=== PATIENT | female | born 1970 | race Caucasian/White ===

== ENCOUNTER 2019-07-20 14:04 | Outpatient (CLI) | payer BC, SELFPAY ==
--- NOTE | ~2019-07-20 | CT_ITS ---
EXAMINATION: CT chest wo con DATE: 07/20/2019 14:44 INDICATION: Follow-up of lung nodule TECHNIQUE: Computed tomography (CT) of the chest was performed without intravenous contrast. Automate d exposure control and iterative reconstruction technique were employed. Exam dose: 76.60 mGy-cm tot al exam DLP. COMPARISON: 05/20/2014 PA and lateral chest 09/09/2013 CT pulmonary scan: 8.5 mm right lower lobe nodule was identified FINDINGS: Previously reported 8.5 mm right lower lobe nodule has resolved since 09/09/2013, with no re sidual. There is minimal atelectasis in the lower lung zones. No pulmonary infiltrate or consolidation or pul monary mass lesion is evident. No thoracic aortic aneurysm. No hilar or mediastinal mass lesion or lymphadenopathy is evident. Fiona l heart size. No pericardial or pleural effusion. Normal adrenal glands. Included upper abdominal structures are unremarkable. Stable mild anterior wedging of T4, T5 and T6. IMPRESSION: Resolution of 8.5 mm right lower lobe nodule since 05/20/2014 Reviewed, dictated and finalized at Location A. Reviewed, dictated and finalized at location B. MASON TENDER
== END 2019-07-20 14:05 | disposition home or self-care (01) ==
LOC: ANHIMG 14:06
PROVIDERS: PCP Family Medicine; Visit Provider Family Medicine
DX: R91.8 Other nonspecific abnormal finding of lung field (principal)
CPT/HCPCS: 71250

== ENCOUNTER 2020-07-16 06:59 | Outpatient (NON) | payer BC, SELFPAY ==
[2020-07-16 22:28] LABS: SARS-CoV-2 RNA PCR Positive
== END 2020-07-16 07:00 ==
PROVIDERS: PCP Family Medicine; Visit Provider Physician Assistant
DX: Z20.822 Contact with and (suspected) exposure to COVID-19 (principal); R68.89 Other general symptoms and signs
CPT/HCPCS: C9803; U0003; U0005

== ENCOUNTER → 2020-11-15 17:42 | Outpatient (CLI) | payer BC, SELFPAY ==
--- NOTE | ~2020-11-15 | DEXA_ITS ---
Bone Density Report Name: Carmenza Jacome Age: 49 Sex: Female Ethnicity: White Date of : 1970 Indication: postmenopausal; screening for osteoporosis; parental hip fracture; height loss; prior fracture; Referring Provider: SHI GUY Study: Bone densitometry was performed. Exam Date: November 15, 2020 Accession number: [id number] Bone Density: Region BMD T-score Z-score Classification AP Spine (L1-L4) 0.915 -1.2 -0.4 Osteopenia Femoral Neck (Left) 0.648 -1.8 -1.0 Osteopenia Total Hip (Left) 0.764 -1.5 -1.0 Osteopenia Femoral Neck (Right) 0.677 -1.5 -0.8 Osteopenia Total Hip (Right) 0.785 -1.3 -0.8 Osteopenia Total Hip Mean 0.775 -1.4 -0.9 Osteopenia World Health Organization criteria for BMD impression classify patients as: Normal (T-score at or above -1.0), Osteopenia (T-score between -1.0 and -2.5), or Osteoporosis (T-score at or below -2.5). 10-year Fracture Risk: FRAX not reported because: Prior hip or vertebral fracture Clinical Information Provided by Patient: Have had a previous hip or vertebral fracture Has had a low trauma fracture Parent has had a hip fracture Has used the following medications: Vitamin D Patient maximum height was 66 Menopause Age: 45 No regular weight bearing exercise Does not regularly consume dairy products Drinks caffeinated beverages Onset of menses at age 9 Number of children 2 Impression: The patient has low bone mass, based on the Left Femoral Neck T-score. The patient has risk factors, including: parental hip fracture, previous fracture. Discussion: INCREASED RISK OF FRACTURE DUE TO HISTORY OF FRACTURE. The patient's previous fracture puts the patient at high risk of a future fracture. In untreated patients, the risk of osteoporotic fracture increases approximately two-fold for each 1.0 SD decrease in T-score. Low bone density is not the only risk factor for fracture; also consider factors such as patient's age, frailty or poor health, risk of falling, risk of injury, previous osteoporotic fracture, family history of osteoporosis, cigarette smoking, low body weight, etc. Not everyone with a low trauma fracture has osteoporosis; osteomalacia and other metabolic bone disorders should also be considered. Patients who have osteoporosis should be evaluated for specific diseases and conditions (secondary causes) that may cause or contribute to bone loss and fracture risk. National Osteoporosis Foundation (NOF) recommends pharmacologic intervention for patients with a prior hip or vertebral fracture regardless of BMD T-score. The patient should follow a healthful lifestyle (good nutrition with adequate calcium and vitamin D, and appropriate weight-bearing exercise). Follow-Up: Consider a repeat BMD and Vertebral Fracture Assessment (VFA) exam in 2 years or sooner if medica
--- NOTE | ~2020-11-15 | MM_ITS ---
EXAMINATION: MM screening [facility] w karen HISTORY: Screening TECHNIQUE: Craniocaudal and mediolateral oblique 3-D tomosynthesis images were obtained and synthetic 2-D images were generated. CAD analysis was submitted and interpreted. COMPARISON: Comparison to multiple prior studies sequentially, with oldest reviewed study dated 12/2015. BREAST PARENCHYMAL COMPOSITION: There are scattered areas of fibroglandular density. FINDINGS: There is developing asymmetry in the upper outer quadrant of the right breast. The left rosa isela ast is stable without evidence for malignancy. IMPRESSION: 1. Developing right breast asymmetry, upper outer quadrant. 2. Additional mammographic views and possible breast ultrasound are recommended. BI-RADS Category 0: Incomplete: Needs additional imaging evaluation. Reviewed, dictated and finalized at location A. IMPRESSION: 1. Developing right breast asymmetry, upper outer quadrant. 2. Additional mammographic views and possible breast ultrasound are recommended . BI-RADS Category 0: Incomplete: Needs additional imaging evaluation.
== END ==
PROVIDERS: PCP Family Medicine; Visit Provider Family Medicine
DX: Z12.31 Encounter for screening mammogram for malignant neoplasm of breast (principal); Z78.0 Asymptomatic menopausal state; R92.8 Other abnormal and inconclusive findings on diagnostic imaging of breast; M85.88 Other specified disorders of bone density and structure, other site; M85.852 Other specified disorders of bone density and structure, left thigh; M85.851 Other specified disorders of bone density and structure, right thigh
CPT/HCPCS: 77063; 77067; 77080

== ENCOUNTER → 2020-12-13 08:42 | Outpatient (CLI) | payer BC, SELFPAY ==
--- NOTE | ~2020-12-13 | MMUS_ITS ---
EXAMINATION: MM diagnostic mammo unilat RT, US breast RT limited HISTORY: Right breast asymmetry follow-up TECHNIQUE: Additional 3-D tomosynthesis images of the right breast were performed and synthetic 2-D i mages were generated. CAD analysis was submitted and interpreted. High resolution Limited right breas t ultrasound was performed. COMPARISON: Comparison to multiple prior studies sequentially, with oldest reviewed study dated 02/2018. BREAST PARENCHYMAL COMPOSITION: Breast composed of scattered areas of fibroglandular density FINDINGS: MAMMOGRAPHIC FINDINGS: Right breast asymmetry is not apparent with spot compression or mediolateral views, likely superimpos ed fibroglandular tissue. ULTRASOUND: Limited right breast ultrasound: At 12:00, 1 cm from the nipple there is a 3 mm cyst. No other masses are identified in the right breast. IMPRESSION: 1. No evidence for malignancy in the right breast. 2. Routine yearly screening mammogram and regular clinical breast examination are recommended. BI-RADS Category 2: Benign finding(s). Reviewed, dictated and finalized at location A. IMPRESSION: 1. No evidence for malignancy in the right breast. 2. Routine yearly screening mammogram and regular clinical breast examination a re recommended. BI-RADS Category 2: Benign finding(s).
== END ==
PROVIDERS: PCP Family Medicine; Visit Provider Physician Assistant
DX: R92.8 Other abnormal and inconclusive findings on diagnostic imaging of breast (principal)
CPT/HCPCS: 76642; 77065

== ENCOUNTER → 2022-03-01 14:25 | Outpatient (CLI) | payer OTHER, SELFPAY ==
--- NOTE | ~2022-03-01 | MR_ITS ---
EXAMINATION: MR elbow RT wo con DATE: 03/01/2022 15:05 INDICATION: Right elbow pain TECHNIQUE: Magnetic resonance imaging (MRI) of the right elbow was performed without intravenous cont rast. Sequences included coronal, axial, and sagittal PD-weighted FS FSE and coronal, axial, and sagi ttal PD-weighted FSE. COMPARISON: None FINDINGS: Osseous/other: Normal alignment. Normal marrow signal with no marrow edema, fracture, osteochondral lesion or patho logic marrow replacing process. Mild osteoarthritis in all 3 compartments of the right elbow with par tial thickness cartilage loss most prominent at the central aspect of the radial head. Mild osteoarth ritis at the ulnotrochlear and proximal radioulnar articulations. Tendons: Triceps, biceps brachii and brachialis tendons are normal. Common flexor tendon wad is normal. Mild tendinopathy without discrete tear at the proximal common extensor tendon wad. Ligaments: The medial and lateral collateral ligament complexes are normal. Cubital tunnel: Cubital tunnel is unremarkable with normal signal and caliber of the ulnar nerve. Fluid: Physiologic amount of fluid the elbow joint. IMPRESSION: 1. Mild lateral epicondylitis with mild tendinopathy without tear of the common extensor tendon wad. 2. 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 Reviewed, dictated and finalized at location A.
== END ==
PROVIDERS: PCP Family Medicine; Visit Provider Nurse Practitioner Family
DX: M19.021 Primary osteoarthritis, right elbow (principal); M77.11 Lateral epicondylitis, right elbow
CPT/HCPCS: 73221

== ENCOUNTER → 2022-05-16 12:28 | Outpatient (CLI) | payer OTHER, SELFPAY ==
--- NOTE | ~2022-05-16 | MM_ITS ---
EXAMINATION: MM screening [facility] BI w karen HISTORY: Screening mammogram TECHNIQUE: Craniocaudal and mediolateral oblique 3-D tomosynthesis images were obtained and synthetic 2-D images were generated. CAD analysis was submitted and interpreted. COMPARISON: 12/13/2020, 11/15/2020, 07/10/2019, 07/26/2017 BREAST PARENCHYMAL COMPOSITION: The breasts are heterogeneously dense, which may obscure small masses . FINDINGS: No suspicious mass, calcification, or architectural distortion are identified in either rosa isela ast to suggest malignancy. There has been no suspicious interval change. IMPRESSION: 1. No mammographic evidence of malignancy. 2. Recommend routine screening mammography in one year. BI-RADS Category 1: Negative Reviewed, dictated and finalized at location A. RANCE CLAIM AUDITOR
== END ==
PROVIDERS: PCP Family Medicine; Visit Provider Nurse Practitioner Gerontology
DX: Z12.31 Encounter for screening mammogram for malignant neoplasm of breast (principal)
CPT/HCPCS: 77063; 77067

== ENCOUNTER → 2022-10-30 16:55 | Outpatient (CLI) | payer OTHER, SELFPAY ==
--- NOTE | ~2022-10-30 | MR_ITS ---
EXAMINATION: MR ankle RT wo con DATE: 10/30/2022 17:53 INDICATION: Right ankle pain TECHNIQUE: Magnetic resonance imaging (MRI) of the right ankle was performed without intravenous cont rast. Sequences included sagittal, coronal, and axial proton-density weighted fast spin echo without and with fat saturation. COMPARISON: None. FINDINGS: Medial ankle ligaments: Deep and superficial deltoid ligaments as well as the spring ligament are normal. Lateral ankle ligaments: The anterior and posterior inferior tibiofibular ligaments are normal. The anterior talofibular, calc aneofibular and posterior talofibular ligaments are normal. Tendons: Achilles tendon is normal aside from tiny enthesophytes at its calcaneal insertion.. The peroneus rai parker and brevis tendons are normal. The tibialis anterior and extensor hallucis longus and extensor di gitorum longus tendons are normal. The flexor digitorum longus and flexor hallucis longus tendons are normal. There is mild increased fluid signal extending along the periphery of the otherwise normal a ppearing tibialis posterior tendon consistent with mild tenosynovitis. Plantar fascia: Plantar aponeurosis is normal. Bones/other: Bone alignment is normal. Normal bone marrow signal throughout with no reactive edema, fracture or pa thologic marrow replacing process. Joint spaces are normal. Fluid: Physiologic amount fluid in the joint spaces. IMPRESSION: 1. Normal tibialis posterior tendon with mild associated tenosynovitis. Reviewed, dictated and finalized at location A.
== END ==
PROVIDERS: PCP Family Medicine; Visit Provider Podiatrist Foot & Ankle Surgery
DX: M25.571 Pain in right ankle and joints of right foot (principal)
CPT/HCPCS: 73721

== ENCOUNTER 2023-12-20 12:40 | Outpatient (CLI) | payer OTHER, SELFPAY ==
--- NOTE | ~2023-12-20 | MM_ITS ---
EXAMINATION: MM screening [facility] BI w karen HISTORY: Screening mammogram TECHNIQUE: Craniocaudal and mediolateral oblique 3-D tomosynthesis images were obtained and synthetic 2-D images were generated. CAD analysis was submitted and interpreted. COMPARISON: 05/16/2022, 11/15/2020 BREAST PARENCHYMAL COMPOSITION:Not Dense. There are scattered areas of fibroglandular density. FINDINGS: No suspicious mass, calcification, or architectural distortion are identified in either rosa isela ast to suggest malignancy. There has been no suspicious interval change. IMPRESSION: No mammographic evidence of malignancy. Recommend routine screening mammography in one year. BI-RADS Category 1: Negative Reviewed, dictated and finalized at location .
== END 2023-12-20 12:41 ==
LOC: MICIMG 12:41
PROVIDERS: PCP Family Medicine; Visit Provider Family Medicine
DX: Z12.31 Encounter for screening mammogram for malignant neoplasm of breast (principal)
CPT/HCPCS: 77063; 77067

== ENCOUNTER 2024-01-26 18:04 | Emergency (ER) | payer OTHER, SELFPAY ==
--- NOTE | ~2024-01-26 | XR_ITS ---
EXAMINATION: XR chest 2V DATE: 01/26/2024 18:42 INDICATION: Chest pain. TECHNIQUE: Frontal and lateral views of the chest were obtained. COMPARISON: Chest 2 views 05/20/2014 FINDINGS: There is mild elevation of right hemidiaphragm. No pneumonia, pleural effusion, or pneumoth orax. The heart size is normal. IMPRESSION: 1. Mild elevation of right hemidiaphragm. Reviewed, dictated and finalized at location E.
--- NOTE | 2024-01-26 18:07 | ECG_ITS ---
Test Date: 2024-01-26 18:11:44 Measurements Intervals [place] Rate: 66 P: 58 SD: 179 QRS: 0 QRSD: 104 T: 46 QT: 386 QTc: 406 Interpretive Statements SINUS RHYTHM LEFTWARD AXIS BORDERLINE ECG No previous ECG available for comparison Electronically Signed On 01-27-2024 12:21:13 CDT by Gus Abraham M.D.
[2024-01-26 18:13] VITALS: BP 143/74; PULSE 64; TEMP 36.8; O2SAT 97
[2024-01-26 18:59] LABS: Basophils Absolute Auto 0.1 K/mm3 (0.0-0.1); Basophils Percent Auto 0.9 % (0.2-1.2); Eosinophils Absolute Auto 0.4 K/mm3 (0-0.3); Eosinophils Percent Auto 4.8 % (0-4.4); Hematocrit 39.9 % (37.0-47.0); Hemoglobin 13.2 g/dL (12.0-15.0); Immature Granulocyte Absolute 0.03 K/mm3 (0.00-0.031); Immature Granulocyte Percent A 0.4 % (0-0.5); Lymphocytes Absolute Auto 2.93 K/mm3 (0.9-3.2); Lymphocytes Percent Auto 34.4 % (18.3-44.2); Mean Corpuscular HGB Conc 33.1 g/dl (32-36); Mean Corpuscular Hemoglobin 30.4 pg (26-34); Mean Corpuscular Volume 91.9 fl (80-100); Mean Platelet Volume 9.9 fl (7.4-10.4); Monocytes Absolute Auto 0.5 K/mm3 (0.1-0.6); Monocytes Percent Auto 5.9 % (2.6-8.5); Neutrophils Absolute Auto 4.6 K/mm3 (1.3-6.7); Neutrophils Percent Auto 53.6 % (45.5-73.1); Platelet Count Result 287 k/mm3 (150-375); Red Blood Count 4.34 M/mm3 (4.2-5.4); Red Cell Distribution Width 11.9 % (11.5-14.5); White Blood Count 8.5 K/mm3 (4.5-10.0)
[2024-01-26 19:10] LABS: Alanine Aminotransferase 13 U/L (6-35); Albumin Level 4.3 g/dL (3.5-5.1); Alkaline Phosphatase 70 U/L (38-126); Anion Gap 10 mmol/L (4-12); Aspartate Amino Transferase 21 U/L (14-36); Bilirubin,Total 0.4 mg/dL (0.2-1.3); Blood Urea Nitrogen 14 mg/dL (7-17); Calcium 9.7 mg/dL (8.4-10.2); Carbon Dioxide 28 mmol/L (22-30); Chloride 100 mmol/L (98-107); Estimated CRCL calculation 82 ml/min; Estimated Glomerular Filt Rate > 60; Glucose 82 mg/dL (65-110); Lipase 120 U/L (23-300); Potassium 3.8 mmol/L (3.4-5.0); Sodium 138 mmol/L (137-145)
[2024-01-26 19:14] LABS: Prothrombin Time 13.3 Seconds (11.1-14.7)
[2024-01-26 19:16] LABS: Partial Thromboplastin Time 25.1 Seconds (22.3-36.8)
[2024-01-26 19:22] LABS: Troponin I < 0.012 ng/mL (0.000-0.034)
--- NOTE | 2024-01-26 22:00 | ECG_ITS ---
Test Date: 2024-01-26 22:04:02 Measurements Intervals [place] Rate: 54 P: 60 [place]: 173 QRS: -7 QRSD: 101 T: 32 QT: 432 QTc: 412 Interpretive Statements SINUS BRADYCARDIA LEFTWARD AXIS BORDERLINE ECG Compared to ECG 01/26/2024 18:11:44 NO SIGNIFICANT DIFFERENCE Electronically Signed On 01-27-2024 12:26:17 CDT by Gus Abraham M.D.
--- NOTE | 2024-01-26 22:08 | ED.CHESTPAIN ---
HPI - Chest Pain General Chief Complaint: Chest Pain Stated Complaint: chest pain Time Seen by Provider: 01/26/24 21:43 History of Present Illness HPI narrative: 53-year-old female with a history of hyperlipidemia and seizure disorder presents to emergency department for chest pain that started this afternoon while sitting down. Patient states the pain is located in the center of her chest and is now radiating to the left side. She describes it as a sharp sensation. She states it is intermittent in nature and she cannot identify any aggravating or alleviating factors. States sometimes it lasts a couple minutes and sometimes lasts several minutes. She reports this shortness of breath that occurs when she has the pain. She denies cough or congestion, fever, hemoptysis, recent surgeries or hospitalizations, history of VTE, history of cardiac disease, family history of cardiac disease or stroke. She does not smoke. On my evaluation the patient is not having any pain. Related Data Allergies Allergy/AdvReac Type Severity Reaction Status Date / Time Penicillins Allergy Unknown poss joint Verified 10/07/23 16:06 swelling alendronate sodium AdvReac Intermediate bone pain Verified 10/07/23 16:06 Review of Systems Review of Systems: All systems reviewed & are unremarkable except as noted in HPI and below PMFSH Past Medical History Medical History Anxiety state Close exposure to 2019 novel coronavirus PEDRO (generalized anxiety disorder) Lateral epicondylitis Major depressive disorder, recurrent episode, moderate Pulmonary nodules Right elbow pain Right upper quadrant pain Seizure disorder Family History Family History Mother Family history of alcoholism Family history of arthritis Family history of lung cancer Osteoporosis COPD (chronic obstructive pulmonary disease) Father Cancer liver or gallbladder Aortic aneurysm Pulmonary embolism Sibling No problems noted. Other Family history of lung disease Family history of malignant neoplasm Family history of mental disorder Family history of throat cancer Social History Social History Social History: Smoking status: Never smoker Second hand tobacco smoke exposure: No Alcohol intake: current Alcohol use details: occasionally Substance use: never Substance use type: does not use Lack of Transportation: No Lack of Food: Never True Current Housing: I Have Housing Concerned About Future Housing: No Difficulty Paying Gas/Electric Bills: No Difficulty Paying for Meds: No Currently Unemployed: No Education: Decline to Answer Difficulty w/ Childcare or Family Care: No Living arrangements: with family Occupation/Education: occupation Gender identity (if verbalized by the patient): Female Sexual Orientation (if Verbalized by the Patient): Straight or Heterosexual Exam Narrative: GENERAL: Well-appearing, well-nourished, and in no acute distress. HEAD: Normocephalic, atraumatic. EYES: PERRLA and EOMI. ENT: Nares clear, no rhinorrhea or epistaxis. Mucous membranes moist. NECK: Supple. CHEST: Clear to auscultation. No respiratory distress. No tenderness to chest wall HEART: Regular rate and rhythm. No murmur heard. Normal peripheral pulses. ABDOMEN: Soft, nontender, nondistended, normal active bowel sounds. EXTREMITIES: Normal range of motion. No edema. SKIN: Warm, dry, no rash. NEURO: No focal deficits. Alert and oriented x3 Course Vital Signs Vital signs: Vital Signs Temperature 98.2 F 01/26/24 18:13 Pulse Rate 64 01/26/24 18:13 Blood Pressure 143/74 H 01/26/24 18:13 Pulse Oximetry 97 01/26/24 18:13 Temperature 98.2 F 01/26/24 18:13 Pulse Rate 65 01/26/24 23:36 Respiratory Rate 13 01/26/24
[2024-01-26 22:38] LABS: Troponin I < 0.012 ng/mL (0.000-0.034)
[2024-01-26] MEDS: FAMOTIDINE 20 MG TABLET PO (22:52)
[2024-01-26] MEDS: BELLADONNA ALK/PHENOB ELIX 10 ML, MAG HYDROX/ALUMINUM HYD/SIMETH 30 ML, LIDOCAINE HCL 2... PO (22:53)
[2024-01-26 23:01] VITALS: BP 130/74; PULSE 65; RESP 16; O2SAT 100
[2024-01-26 23:36] VITALS: BP 138/79; PULSE 65; RESP 13; O2SAT 96
[2024-01-27 00:27] VITALS: BP 124/76; PULSE 72; RESP 16; O2SAT 100
== END 2024-01-27 00:28 | disposition home or self-care (01) ==
PROVIDERS: Emergency Medicine; Student in an Organized Health Care Education/Training Program; Emergency Provider Physician Assistant; PCP Family Medicine
DX: R07.89 Other chest pain (principal); E78.5 Hyperlipidemia, unspecified; G40.901 Epilepsy, unspecified, not intractable, with status epilepticus; Z79.899 Other long term (current) drug therapy; R00.1 Bradycardia, unspecified
CPT/HCPCS: 36415; 71046; 80053; 83690; 84484; 85025; 85610; 85730; 93005; 99284; A9270

== ENCOUNTER 2024-04-03 00:18 | Day surgery (SDC) | payer OTHER, SELFPAY ==
[2024-03-20 13:41] VITALS: BMI 31.0
[2024-04-03] MEDS: LACTATED RINGERS 1,000 ML 150 ML IV CONT (07:55)
[2024-04-03 07:57] VITALS: BP 104/61; PULSE 77; RESP 18; TEMP 36.1; O2SAT 96; BMI 31.4
--- NOTE | 2024-04-03 08:00 | WPDANESEPPF ---
Anes - Initial Pre Proc Eval Procedure: Operation Date: 04/03/24 09:00 Proposed Procedures p Esophagogastroduodenoscopy - Augie Wilson MD Date/Time: 04/03/24 08:00 Surgeon: Augie Wilson MD Pre Op Diagnosis: Foreign Body Sensation Throat Patient Data Age: 53 Gender: F Height: 1.63 m Weight: 83 kg Last Vital Signs Temp 36.1 C L 04/03/24 07:57 Pulse 77 04/03/24 07:57 Resp 18 04/03/24 07:57 BP 104/61 04/03/24 07:57 Pulse Ox 96 04/03/24 07:57 O2 Del Method Room Air 04/03/24 07:57 Allergies Allergy/AdvReac Type Severity Reaction Status Date / Time Penicillins Allergy Unknown poss joint Verified 04/03/24 07:41 swelling alendronate sodium AdvReac Intermediate bone pain Verified 04/03/24 07:41 Home Medications Medication Instructions Recorded Confirmed Type sumatriptan succinate 25 mg tablet See Rx Instructions PO .COMPLEX 10/07/23 04/03/24 Rx (Imitrex) #14 tabs oxybutynin chloride 5 mg tablet See Rx Instructions .Route 01/08/24 04/03/24 Rx .COMPLEX #90 tabs sertraline 25 mg tablet 25 mg PO DAILY 01/28/24 04/03/24 History isosorbide dinitrate 5 mg tablet 5 mg PO BID PRN chest pain #14 tabs 02/04/24 04/03/24 Rx omeprazole 40 mg capsule,delayed 40 mg PO DAILY 1 month #30 caps 03/12/24 04/03/24 Rx release ergocalciferol (vitamin D2) 50 mcg 50 mcg PO BID 03/20/24 04/03/24 History (2,000 unit) capsule glucosamine-chondroitin 250 mg-200 1 tablet PO DAILY 03/20/24 04/03/24 History mg tablet (Osteo Bi-Flex) mecobalamin (vitamin B12) 1,000 1,000 mcg PO DAILY 03/20/24 04/03/24 History mcg chewable tablet vitamin A-vitamin C-vit E-min 1 tablet PO DAILY 03/20/24 04/03/24 History tablet raloxifene 60 mg tablet See Rx Instructions .Route 03/25/24 04/03/24 Rx .COMPLEX #90 tabs Patient hx anesthesia problems: none Family hx anesthesia problems: none Results Review: All pre-operative results and documents have been reviewed as part of the pre-operative evaluation. [facility] Past Medical History Medical History (Updated 04/03/24 @ 08:03 by Nolberto Ramirez MD) Anxiety state Atypical chest pain Close exposure to 2019 novel coronavirus Encounter for screening colonoscopy PEDRO (generalized anxiety disorder) Globus sensation Lateral epicondylitis Major depressive disorder, recurrent episode, moderate Pulmonary nodules Right elbow pain Right upper quadrant pain Seizure disorder 2 episodes 10 years ago, neg workup not medicated Family History Family History Mother Family history of alcoholism Family history of arthritis Family history of lung cancer Osteoporosis COPD (chronic obstructive pulmonary disease) Father Cancer liver or gallbladder Aortic aneurysm Pulmonary embolism Sibling No problems noted. Other Family history of lung disease Family history of malignant neoplasm Family history of mental disorder Family history of throat cancer Social History Social History Social History: Smoking status: Never smoker Second hand tobacco smoke exposure: No Alcohol intake: current Drinks per week: 1 Alcohol use details: occasionally Substance use: never Substance use type: does not use Lack of Transportation: No Lack of Food: Never True Current Housing: I Have Housing Concerned About Future Housing: No Difficulty Paying Gas/Electric Bills: No Difficulty Paying for Meds: No Currently Unemployed: No Education: Decline to Answer Difficulty w/ Childcare or Family Care: No Living arrangements: with family Occupation/Education: occupation Gender identity (if verbalized by the patient): Female Sexual Orientation (if Verbalized by the Patient): Straight or Heterosexual Spiritual care concerns: No Anes - Eval Final PreProcedure Day of Procedure 04/03/24 08:00
--- NOTE | 2024-04-03 08:32 | PM.IMHP ---
H&P: HPI History of Present Illness Date/Time: 04/03/24 08:32 Chief Complaint: Dysphagia Narrative: this patient has been complaining of dysphagia for the past 6 months. This is occurring only with solids, in an intermittent fashion. She did have a few episodes of crushing retrosternal chest pain, and was evaluated by her physician, rulling out cardiac disease. There is no unintentional weight loss, nausea or vomiting. Review of Systems Review of Systems: All systems reviewed & are unremarkable except as noted in HPI and below PMFSH Past Medical History Medical History (Updated 04/03/24 @ 08:34 by Augie Wilson MD) Anxiety state Atypical chest pain Close exposure to 2019 novel coronavirus Encounter for screening colonoscopy PEDRO (generalized anxiety disorder) Globus sensation Lateral epicondylitis Major depressive disorder, recurrent episode, moderate Pulmonary nodules Right elbow pain Right upper quadrant pain Seizure disorder 2 episodes 10 years ago, neg workup not medicated Family History Family History Mother Family history of alcoholism Family history of arthritis Family history of lung cancer Osteoporosis COPD (chronic obstructive pulmonary disease) Father Cancer liver or gallbladder Aortic aneurysm Pulmonary embolism Sibling No problems noted. Other Family history of lung disease Family history of malignant neoplasm Family history of mental disorder Family history of throat cancer Social History Social History Social History: Smoking status: Never smoker Second hand tobacco smoke exposure: No Alcohol intake: current Drinks per week: 1 Alcohol use details: occasionally Substance use: never Substance use type: does not use Lack of Transportation: No Lack of Food: Never True Current Housing: I Have Housing Concerned About Future Housing: No Difficulty Paying Gas/Electric Bills: No Difficulty Paying for Meds: No Currently Unemployed: No Education: Decline to Answer Difficulty w/ Childcare or Family Care: No Living arrangements: with family Occupation/Education: occupation Gender identity (if verbalized by the patient): Female Sexual Orientation (if Verbalized by the Patient): Straight or Heterosexual Spiritual care concerns: No Meds Home Medications and Allergies Home Medications Medication Instructions Recorded Confirmed Type sumatriptan succinate 25 mg tablet See Rx Instructions PO .COMPLEX 10/07/23 04/03/24 Rx (Imitrex) #14 tabs oxybutynin chloride 5 mg tablet See Rx Instructions .Route 01/08/24 04/03/24 Rx .COMPLEX #90 tabs sertraline 25 mg tablet 25 mg PO DAILY 01/28/24 04/03/24 History isosorbide dinitrate 5 mg tablet 5 mg PO BID PRN chest pain #14 tabs 02/04/24 04/03/24 Rx omeprazole 40 mg capsule,delayed 40 mg PO DAILY 1 month #30 caps 03/12/24 04/03/24 Rx release ergocalciferol (vitamin D2) 50 mcg 50 mcg PO BID 03/20/24 04/03/24 History (2,000 unit) capsule glucosamine-chondroitin 250 mg-200 1 tablet PO DAILY 03/20/24 04/03/24 History mg tablet (Osteo Bi-Flex) mecobalamin (vitamin B12) 1,000 1,000 mcg PO DAILY 03/20/24 04/03/24 History mcg chewable tablet vitamin A-vitamin C-vit E-min 1 tablet PO DAILY 03/20/24 04/03/24 History tablet raloxifene 60 mg tablet See Rx Instructions .Route 03/25/24 04/03/24 Rx .COMPLEX #90 tabs Allergies Allergy/AdvReac Type Severity Reaction Status Date / Time Penicillins Allergy Unknown poss joint Verified 04/03/24 07:41 swelling alendronate sodium AdvReac Intermediate bone pain Verified 04/03/24 07:41 Vital Signs Vital Signs - 24 hr 04/03/24 07:57 Temperature 97.0 F L Pulse Rate 77 Respiratory Rate 18 Blood Pressure 104/61 Pulse Oximetry 96 Oxygen Delivery Room Air Assessment and Plan Assessment
[2024-04-03 08:59] VITALS: BP 105/71; PULSE 64; RESP 17; O2SAT 98
[2024-04-03 09:09] VITALS: BP 115/72; PULSE 60; RESP 15; O2SAT 98
[2024-04-03 09:19] VITALS: BP 112/69; PULSE 58; RESP 18; O2SAT 99
== END 2024-04-03 09:45 | disposition home or self-care (01) ==
PROVIDERS: PCP Physician Assistant; Referring Provider Nurse Practitioner Family; Visit Provider Internal Medicine Gastroenterology
PROC: 0DJ08ZZ Inspection of Upper Intestinal Tract, Via Natural or Artificial Opening Endoscopic (ICD-10-PCS; CPT 43235; principal; 2024-04-03 09:00)
DX: K20.0 Eosinophilic esophagitis (principal); K29.30 Chronic superficial gastritis without bleeding; E66.9 Obesity, unspecified; Z68.31 Body mass index [BMI] 31.0-31.9, adult
CPT/HCPCS: 43239; 88305; J2003; J2704; J7120

== ENCOUNTER 2024-06-04 07:51 | Outpatient (RCR) | payer OTHER, SELFPAY ==
[2024-06-04 09:07] VITALS: BMI 31.6
== END 2024-08-24 09:28 | disposition home or self-care (01) ==
LOC: ANHDMC 07:51
PROVIDERS: PCP Physician Assistant; Visit Provider Nurse Practitioner Family
DX: K20.0 Eosinophilic esophagitis (principal); Z71.3 Dietary counseling and surveillance
CPT/HCPCS: 97802

== ENCOUNTER 2024-07-13 09:45 | Outpatient (CLI) | payer OTHER, SELFPAY ==
--- NOTE | ~2024-07-13 | CT_ITS ---
Non-contrast Head CT History: Migraine Technique: Axial non-contrast imaging of the brain was performed. Dose reduction technique was used on this scan by utilizing automated exposure control and iterative reconstruction technique. The dose -length product (DLP) was 599.57 mGy-cm. Findings: There is no evidence of intracranial hemorrhage, mass lesion, or acute infarct. Brain par enchyma appears normal. The ventricles and subarachnoid spaces are normal in size. The calvarium ap pears normal. The visualized paranasal sinuses and mastoid air cells are clear. Impression: No significant abnormality seen. Reviewed, dictated and finalized at location . REMENT MANAGER Impression: No significant abnormality seen.
== END 2024-07-13 09:46 | disposition home or self-care (01) ==
LOC: MICIMG 09:46
PROVIDERS: PCP Physician Assistant; Visit Provider Physician Assistant
DX: G43.909 Migraine, unspecified, not intractable, without status migrainosus (principal)
CPT/HCPCS: 70450

== ENCOUNTER 2024-07-28 11:10 | Outpatient (CLI) | payer OTHER, SELFPAY ==
--- OUTSIDE RECORDS SUMMARY | 2024-07-28 12:31 | XMS_ITS | Encounter Summary ---
Author Organization [facility] Address [address] [place] [address] Care Team Providers Care Forging Roll Operator Name Role Phone Unknown, Provider Primary Care Provider Unavaila ble Encounter Details Date Type Department Care Team (Late st Contact Info) Description 03/05/2018 Lab Requisition [facility] [address] [place] [id number] Kade Chandler MD [address] [address] Social History Tobacco Use Types Packs/Day Years Used Date Smoking Tobacco: Never Assessed Sex and Gender Information Value Date Recorded Sex Assigned at Not on file Gender Identity Not on file Sexual Orientation Not on file documented as of this encounter Plan of Treatment Not on file documented as of this encounter Procedures Procedure Name Priority Date/Time Associated Diagnosis Comments DERMATOPATHOLOGY Routine 03/04/2018 12:0 0 AM CDT documented in this encounter Results * DERMATOPATHOLOGY (03/04/2018 12:00 AM CDT) Case Report Dermatopathology Report Case: [id number] Authorizing Provider: Kade Chandler MD Collected: 03/04/2018 12:00 AM Pathologist: Tari Jones MD Received: 03/05/2018 11:47 AM Specimen: Skin, right lateral superior calf 8 3:42 PM CDT DERMATOPATHOLOGY LABORATORY Final Diagnosis Specimen A. SKIN, right lateral superior calf: LENTIGINOUS MELANOCYTIC NEVUS, JUNCTIONAL TYPE, IRRITATED (JUNCTIONAL MELANOCYTIC NEVUS WITH ARCHITECTURAL DISORDER) (D22.71) 8 3:42 PM CDT DERMATOPATHOLOGY LABORATORY Clinical History R/O dys nevus. 3:42 PM CDT DERMATOPATHOLOGY LABORATORY Gross Description Specimen A: Received is one formalin filled container labeled with the patient's name and designated right lateral superior calf. The specimen consists of a shave biopsy measuring [id number]. Jar 0. 3:42 PM CDT DERMATOPATHOLOGY LABORATORY Microscopic Description Specimen A. SKIN, right lateral superior calf: This is a junctional nevus. There is melanin pigment in the stratum corneum. There is architectural disorder characterized by a lentiginous proliferation of melanocytes between irregular nests of cells along the dermal-epidermal junction, highlighted by MART-1/Melan-A immunohistochemical staining. There is underlying fibroplasia of the papillary dermis. Original and deeper sections were reviewed. (Junctional Flako's Nevus or Junctional Dysplastic Nevus) 3:42 PM CDT DERMATOPATHOLOGY LABORATORY Disclaimer An external and internal positive and negative controls are appropriate for the histochemical, immunohistochemical and immunofluorescence stain(s) in this case (if any), except where stated explicitly. The performance characteristics of the stain(s) cited in this report were developed and its performance characteristic determined by the Dermatopathology Laboratory at [facility]. These tests need not be, and therefore are not, approved by the [place] Food and Drug Administration. The tests are used for clinical purposes. Billing Codes Specimen Charges Stain Charges 14711 1 22004 1 3:42 PM CDT DERMATOPATHOLOGY LABORATORY Embedded Images 3:42 PM CDT DERMATOPATHOLOGY LABORATORY Pathology/Cytolog y TISSUE SPECIMEN FROM SKIN / Unknown 03/04/2018 03/05/2018 11:47 AM CDT Kade Chandler MD LAB - PATHOLOGY/CYTO LOGY ORDERABLES DERMATOPATHOLOGY LABORATORY [facility] - Department of Dermatology [address] [place] [address], [facility] [phone] documented in this encounter Visit Diagnoses Not on filedocumented in this encounter Care Teams Forging Roll Operator Relationship Specialty Start Date End Date Unknown, Provider PCP - General 10/31/17 documented as of this encounter
--- OUTSIDE RECORDS SUMMARY | 2024-07-28 12:31 | XMS_ITS | Referral Summary ---
Author Organization [facility] Address [address] [place] [address] Care Team Providers Care Forklift Wheel Loader Name Role Phone Unknown, Provider Primary Care Provider Unavaila ble Source Comments [facility],non-owned Affiliates and Associated Physician Practices is amultiple site organization consisting of ambulatory clinics and hospital sitesin [place], [place], [place] and [place]. This disclosure is being madepursuant to the Care Everywhere program and may not contain all information available regarding this patient. Last updated 18.[employer] Social History Tobacco Use Types Packs/Day Years Used Date Smoking Tobacco: Never Assessed Sex and Gender Information Value Date Recorded Sex Assigned at Not on file Gender Identity Not on file Sexual Orientation Not on file Plan of Treatment Not on file Care Teams Forklift Wheel Loader Relationship Specialty Start Date End Date Unknown, Provider PCP - General 10/31/17
--- OUTSIDE RECORDS SUMMARY | 2024-07-28 12:31 | XMS_ITS | Data Portability ---
Author Organization [facility] Address [address] [place] [address] Care Team Providers Care Capsule Filling Machine Operator Name Role Phone YADIRA GUYIA Primary Care Provider Assessment Encounter Date Assessment Date Assessment LastModified by Organization Details LastModified Time 04/15/2021 04/15/2021 Annual gynecological exam performed. Patient will come back in a year unless there are new symptoms. [email or web address] Not available 04/15/2021 12:53:21 11/08/2022 11/08/2022 Annual gynecological exam performed. Patient will come back in a year unless there are new symptoms. [email or web address] Not available 11/08/2022 18:51:58 Plan of Treatment Reminders Order Date Submit Date Provider Last Modified By Organization Details Last Modified Time Details Appointments None record ed. Lab None record ed. Referral None record ed. Procedures None record ed. Surgeries None record ed. Imaging None record ed. Medication Orders None record ed. Patient TargetsNo targets recorded. Patient InstructionsNo instructions recorded. Reason for Referral None Reported. Results Created Date Observation Date Name Description Value Unit Range Abnormal Flag Note LastModifiedBy Organization Detail LastModifiedTime 04/17/20 21 04/17/2021 IMAGE GUIDE D PAP AND HPV REGAR DLESS image guided Pap, HPV regardless of Pap result SEE RESULT S BELOW CASE REPOR T: Cytol ogy Gynec ologi yelitza Repor t Case: [id number] Autho lorena maier Provi mac: Brigido Naranjo Colle cted: 04/17 1007 UNDERWRITING SUPPORT SPECIALIST Order ing Locat ion: [place] Patho log[facility] Recei kaitlynn: 04/18 0112 First Scree n: Spencer singer, [place] , [place] Speci men: Scree luisa Pap - Image d, Cervi x STATE MENT OF ADEQU ACY: Satis facto ry for evalu ation Trans forma tion zone compo nent prese nt FINAL DIAGN OSIS: Negat alvino for Intra epith elial Lesio n or Ramosange ramsey (NIL) . Elect brennen daniel andres d by Stephy Mann , CT on 2020 at 12:38 PM ----- ----- ----- ----- ----- ----- ----- ----- ----- ----- ----- ----- ----- ----- ----- ----- ----- ---- HPV RESUL TS: HPV mRNA E6/E7 : No HPV mRNA Detec adán NOTE: This high risk HPV mRNA assay detec ts fourt een high- risk HPV types (16, 18, 31, 33, 35, 39, 45, 51, 52, 56, 58, 59, 66, 68) witho ut diffe renti ation . COMME NT: Note: This speci men was revie wed by a Cytot echno logis t and/o r Patho logis t (as indic ated in this repor t) after evalu ation using the Thinp rep Imagi ng Syste m. CLINI YELITZA INFOR MATIO N: Menst rual Statu s: LMP (if appli cable ): Clini yelitza Histo ry/Pr eviou s Pap: Type of Neopl leo (if appli cable ): Signi fican t Clini yelitza Findi ngs: Other Histo ry: Hormo aurora (if appli cable ): PAP EDUCA MARY ELLEN L NOTE: The Pap Test is a scree luisa test with an inher ent false negat alvino rate. Liqui d-bas e sampl ing may decre ase, but will not elimi marysol, false negat alvino resul ts. A negat alvino resul t does not precl ude the prese nce and/o r devel opmen t of disea se, since the prese nce of abnor mal cells in the sampl e depen ds on the locat ion of the lesio n and sampl ing techn ique. Mayito nued regul ar scree luisa is the best metho d of cance r preve ntion . If repor adán cytol ogic findi ng do not corre late with physi yelitza and/o r histo rical findi ngs, furth er inves tigat ion is recom adeline d, as clini moreno castro nted. Not Available [facility] (Lab) [address], [place], [address], 04/23/2021 13:40:39 Result Notes None recorded. Problems Name Problem SNOMED Code Status Onset Date Resolution Date Notes Provider Name and Address Organization Details Recorded Time Secondar y amenorrh ea 309731662 Completed 201704/15/2021 Secondar y amenorrh ea;Recor ded Elsewher e: No Locat ion: [facility] S ource: EHR Baby Stroller Rental Clerk josh: N Doug ce ID: 0001 Jabier lable Time: 04:30:00 PM Haleigh rubio [facility] 14:53:55 Body mass index 30+ - obesity 048620015 Completed 201704/15/2021 Body mass index (BMI) 33.0-33. 9, adult;Re corded Elsewher e: No Locat ion: [facility] S ource: EHR Baby Stroller Rental Clerk josh: N Doug ce ID: 0001 Jabier lable Time: 04:30:00 PM Haleigh rubio [facility] 14:53:[address] Concept Completed 201904/15/2021 Encntr for manager endoscopy exam (general ) (routine ) w/o abn findings ;Recorde d Elsewher e: No Locat ion: [facility] S ource: EHR Baby Stroller Rental Clerk josh: N Doug ce ID: 0001 Jabier lable Time: 05:15:00 PM Haleigh rubio [facility] 14:53:57 Overacti ve urinary bladder 669159602 Completed 201904/15/2021 Overacti ve bladder; Recorded Elsewher e: No Locat ion: [facility] S ource: EHR Baby Stroller Rental Clerk josh: N Practi ce ID: 0001 Jabier lable Time: 05:15:00 PM Haleigh rubio [facility] 14:53:53 Problem Notes None recorded. Procedures Surgical History Date Name Laterality Status Provider Name and Address Organization Details Recorded Time 11/09/19 23 Date of Last Pap Smear completed Haleigh Rome [facility] 11/08/2022 18:53:33 10/19/19 20 colonoscopy completed Sallie Hood [facility]- [address], [place], [address], [facility] 11/08/2022 18:58:17 06/25/19 04 section completed Haleigh Rome [facility] 04/15/2021 14:59:21 07/07/19 01 section completed Haleigh Rome [facility] 04/15/2021 14:59:28 06/17/18 86 termination of completed Haleigh Rome [facility] 04/15/2021 14:59:38 06/17/18 84 Tonsillectomy completed Haleighluis m Rome [facility] 04/15/2021 15:01:37 Imaging Results None recorded. Procedure Notes None recorded. Medical Equipment None Reported. Allergies Allergen ID Allergen Name Allergen Category Reaction Reaction Severity Criticality Documentation Date Start Date Code Code System Note Provider Name and Address Organization Details Recorded Time 29558 Product containin g penicilli n and antibioti c (product) medicatio n Not available Not available Not available 04/15/2021 99329 05 SNOMED Haleigh rubio [facility] 15:02:05 Medications Name Sig Start Date Stop Date Status Note LastModified by Organization Details LastModified Time clonazepa m 0.5 mg tablet take 1 tablet by oral route 3 times every day 04/15 completed Prescrib ed Elsewher e: Yes Loca tion: [facility] odify By: isma Encounte r DateTime : 11/21/19 18 04:30:00 PM Not Available Not Available Not Available fluoxetin e 10 mg capsule take 1 Capsule by oral route every day 04/15 completed Prescrib ed Elsewher e: Yes Loca tion: [facility] odify By: isma Encounte r DateTime : 11/21/19 18 04:30:00 PM Not Available Not Available Not Available raloxifen e 60 mg tablet TAKE 1 TABLET BY MOUTH EVERY DAY active Not Available Not Available No t Available Detrol LA 2 mg capsule,e xtended release take 1 capsule by oral route every day 04/15 completed Prescrib ed Elsewher e: No Locat ion: [facility] odify By: sepsalazar Cross ter DateTime : 08/12/19 05:15:00 PM Not Available Not Available Not Available oxybutyni n chloride 5 mg tablet TAKE 1 TABLET BY MOUTH EVERY DAY active Not Available Not Available No t Available multivita min capsule take 1 capsule by oral route every day 11/08 completed Prescrib ed Elsewher e: Yes Loca tion: [facility] odify By: isma Encounte r DateTime : 11/21/19 18 04:30:00 PM Not Available Not Available Not Available naproxen 500 mg tablet TAKE 1 TABLET BY MOUTH TWICE DAILY active Not Available Not Available No t Available oxybutyni n 11/08 completed Not Available Not Available Not Available Keppra 500 mg/5 mL intraveno us solution infuse by intraven ous route 2 times every day over 04/15 completed Prescrib ed Elsewher e: Yes Loca tion: [facility] odify By: isma Encounte r DateTime : 11/21/19 18 04:30:00 PM Not Available Not Available Not Available Osteo Bi-Flex active Prescrib ed Elsewher e: Yes Loca tion: [facility] M odify By: [email or web address] Cat r DateTime : 11/21/19 18 04:30:00 PM Not Available Not Available Not Available Vitamin D3 Complete 18 mg iron-800 mcg-150 mg tablet active Prescrib ed Elsewher e: Yes Loca tion: [facility] M odify By: isma Taynani r DateTime : 11/21/19 18 04:30:00 PM Not Available Not Available Not Available Vitals Date Recorded Body height Body mass index (BMI) Body weight Systolic blood pressure Diastolic blood pressure Provider Name and Address Organization Details Last Updated DateTime 04/15/2021 163.83 cm 29.2 kg/m2 18911.48 g 101 mm[Hg] 66 mm[Hg] Sallie Hood, [facility]- [address], [place], [address], [facility] 1 12:39:56 Date Recorded Body height Body mass index (BMI) Body weight Systolic blood pressure Diastolic blood pressure Provider Name and Address Organization Details Last Updated DateTime 11/08/2022 163.83 cm 31.4 kg/m2 55618.18 g 100 mm[Hg] 64 mm[Hg] Haleigh Rome [facility] 3 18:52:43 Social History Question Answer Notes LastModified by Organizat ion Details LastModified Time Tobacco Smoking Status Never Smoker DILLON rubio, [facility] 11/08/2022 18:32:06 What Is Your Level Of Alcohol Consumption? Occasional [email or web address] Information not available 04/15/2021 Are You Blind Or Do You Have Difficulty Seeing? No [email or web address] Information n ot available 04/15/2021 What Is Your Level Of Caffeine Consumption? Moderate [email or web address] Information not available 04/15/2021 In The 14 Days Before Symptom Onset, Have You Had Close Contact With A Laboratory-confirm ed COVID-19 While That Case Was Ill? No [email or web address] Information n ot available 04/15/2021 In The 14 Days Before Symptom Onset, Have You Had Close Contact With A Person Who Is Under Investigation For COVID-19 While That Person Was Ill? No [email or web address] Information not available 04/15/2021 Have You Been To An Area Known To Be High Risk For COVID-19? No [email or web address] Information not available 04/15/2021 Are You Deaf Or Do You Have Serious Difficulty Hearing? No [email or web address] Information not available 04/15/2021 What Type Of Diet Are You Following? REGULAR [email or web address] Information n ot available 04/15/2021 Have You Ever Been Counseled For Unhealthy Alcohol Use? No Information not available 11/08/2022 Do You Use Your Seat Belt Or Car Seat Routinely? Yes [email or web address] Information not available 04/15/2021 Do You Have Smoke And Carbon Monoxide Detectors In Your Home? Yes Information not available 04/15/2021 Do You Feel Stressed (tense, Restless, Nervous, Or Anxious, Or Unable To Sleep At Night)? [id number] [email or web address] Information not available 04/15/2021 Do You Use Any Illicit Or Recreational Drugs? No [email or web address] Information not available 04/15/2021 Do You Use Sunscreen Routinely? Yes Information not available 04/15/2021 Has Tobacco Cessation Counseling Been Provided? No Information not available 11/08/2022 Do You Or Have You Ever Used Any Other Forms Of Tobacco Or Nicotine? No Information not available 11/08/2022 Sex: Unknown Functional Status Question Answer Note LastModified by Organizat ion Details LastModified Time Do you have difficulty walking or climbing stairs? No [email or web address] Information not available 11/08/2022 Are you able to walk? YESWOREST [email or web address] Information not available 04/15/2021 Are you able to care for yourself? Yes [email or web address] Information not available 11/08/2022 Do you have difficulty dressing or bathing? No [email or web address] Information not available 11/08/2022 What is your exercise level? Occasional [email or web address] Information not available 04/15/2021 Mental Status None recorded. Family History Relationship Description Onset Age of this Age Resolved Age Notes LastModified by Organization Details LastModified Time Mother Malignant tumor of lung [email or web address] Not available 11/08 18:53:02 Mother Cyst of ovary [email or web address] Not available 11/08 18:53:02 Mother Anxiety disorder [email or web address] Not available 11/08 18:53:02 Mother Malignant tumor of lung Not available 11/08 18:53:02 Mother Osteoporosis [email or web address] Not louisa ilable 11/08/2022 18:53:02 Father Pulmonary embolism Not available 11/08 18:53:02 Father Blood coagulation disorder [email or web address] Not available 11/08 18:53:02 Notes:Father: pulmonary embo lism Mother: Cancer, lung, ovarian cyst Medical History Condition Response Allergies (Food, seasonal, environmental ) N Other Y Breast Cancer N Drug/Latex Allergies/Reactions N Blood Transfusion N Dermatologic Disorders N Lung Disease N Defects or Inherited Disease N Breast Problem N Gestational Diabetes N Hematologic disorders N Anesthesia Complications N History of STI N Deep Vein Thrombosis N Polycystic ovary syndrome N Anxiety Disorder Y Autoimmune disease N Arthritis N Infertility N Polyps N Acid Reflux (GERD) N History of abnormal pap N Cancer N Stroke N Varicosities N Neurologic/Epilepsy Y Endometriosis N High Cholesterol N Headaches N Fibromyalgia N Kidney Disease N Heart Problems N Kidney or Bladder Problems Y Thyroid Problems N GI Problems N Eating Disorder N Anemia N Art (IVF or FET) N Psychiatric Illness N Ovarian Cancer N Diabetes N Pulmonary (TB, Asthma) N Hepatitis/Liver Disease N No Past Medical History N Eczema N Urinary Tract Infection N Abuse/Domestic Violence N Asthma N Trauma/Violence N Depression/ depression Y Heart Disease N Pre-Eclampsia N Hypertension N Osteoporosis Y Thrombophilias N Gynecological History Statement/Question Response Abnormal Pap N Date of Last Mammogram Date of LMP 06/17/2005 Sexually Active? Y STIs/STDs N HPV Vaccine N Date of Last Pap Smear 11/08/2022 Sexual Problems? N Current Control Method Menopause LMP Approximate Obstetrics History GPAL:G 3 P 2 0 1 2 Type Value Full Term 2 Induced 1 Living 2 Total 3 Past Encounters Encounter ID Performer Location Encounter Start Date Encounter Closed Date Diagnosis/Indication Diagnosis SNOMED-CT Code Diagnosis ICD10 Code Diagnosis Note [id number] [facility] [address] [address] 04/15/2021 12:29:24 04/16/2021 22:55:39 Gynecologic examination 14543781 Z01.419 Take Calcium with Vitamin D 12-1500mg daily. Do monthly self breast exams. It is advised to get annual flu shot in the fall and she could obtain at [facility] or [facility] care clinic. If you haven't received the Tdap vaccine in the last 10 years you should obtain one as well. Have mammogram yearly, bone density every 2-3 years and colonoscop y every 5-10 years depending on findings and history. Engage in daily exercise of low impact aerobic exercise 45-60 minutes 4-5 times weekly. Avoid tobacco and illicit drugs as well as using moderation with alcohol intake less than 1-2 8 oz beverages daily. This lifestyle behavior pattern will lead to less health conditions and longer life span. If BMI greater than 25 weight watchers or dietary consult advised. Questions have been answered. Patient appears to understand instructio ns, but if you have any further questions call or respond to this email Pap/hpv sentMammo done wnl (11/2020)[place] done (managed by PCP)-consi dering HRT to benefit bone loss vs Biphosphin ate/SERM as these seemed to upset her GI system & cause joint pain/body aches. (11/2020)Co rai-PCP managed [id number] MARYCARMEN Sánchez-[facility] [address] [address] 11/08/2022 18:29:18 11/13/2022 17:55:17 Gynecologic examination 86595507 Z01.419 Z11.51 Take Calcium with Vitamin D 12-1500mg daily. Do monthly self breast exams. It is advised to get annual flu shot in the fall and she could obtain at [facility] or [facility] care clinic. If you haven't received the Tdap vaccine in the last 10 years you should obtain one as well. Have mammogram yearly, bone density every 2-3 years and colonoscop y every 5-10 years depending on findings and history. Engage in daily exercise of low impact aerobic exercise 45-60 minutes 4-5 times weekly. Avoid tobacco and illicit drugs as well as using moderation with alcohol intake less than 1-2 8 oz beverages daily. This lifestyle behavior pattern will lead to less health conditions and longer life span. If BMI greater than 25 weight watchers or dietary consult advised. Questions have been answered. Patient appears to understand instructio ns, but if you have any further questions call or respond to this email Pap/hpv-se nt STD Screen declined Genetic Screen discussed Colon Screen UTD PCP Dexa Screen PCP Routine Labs PCPMammo UTD PCP Health Concerns Section Related Observation LastModified by Organization Detai ls LastModified Time None Recorded Concern Status LastModified by Organization Details LastModified Time None Recorded Advance Directives Directive None Recorded Payers Encounter Date Sequence Insurance Name Policy Number Policy Ayala Covered Member ID Ayala Member ID Guarantor Name 04/15/2021 1 [facility]: (PPO) [id number] Phil Naa [id number] Carmenza Saba Naa 11/08/2022 1 [employer] [id number] Janette Naa [id number] Carmenza Saba Naa Notes Date Note Type Note Provider Name and Address Organization Details Recorded Time 04/15/2021 text/html Annual Disaster Recovery Manager Post-MenopausalRe ported bypatient.Menopau marissa Symptoms:no menopausal symptoms; normal vaginal lubrication Vaginal Bleeding:history of menopause having occurred; no history of post menopausal bleeding Urinary Symptoms:no hematuria; no incontinence; no nocturia; no urinary frequency Vulva:no genital lesion; no vulvar atrophy Vagina:normal vaginal discharge; no vaginal atrophy Breast:no breast lump; no nipple discharge; no breast pain Sexual Complaints:no sexual complaints Psychological Symptoms:no depression; no anxiety Preventive Measures:encourag e regular mammograms starting age 40; encourage self breast examination; encourage regular exercise; encourage no tobacco use; mammogram performed within the past year; history of recent colonoscopy; Dexa done PCP Sallie Hood [facility]- [address], [place], [address], [facility] 04/18/2021 12:41:22 11/08/2022 text/html Annual Disaster Recovery Manager Post-MenopausalRe ported bypatient.Menopau marissa Symptoms:no menopausal symptoms; normal vaginal lubrication Vaginal Bleeding:history of menopause having occurred; no history of post menopausal bleeding Urinary Symptoms:no hematuria; no incontinence; no nocturia; no urinary frequency Vulva:no genital lesion; no vulvar atrophy Vagina:normal vaginal discharge; no vaginal atrophy Breast:no breast lump; no nipple discharge; no breast pain Sexual Complaints:no sexual complaints Psychological Symptoms:no depression; no anxiety Preventive Measures:encourag e regular mammograms starting age 40; encourage self breast examination; encourage regular exercise; encourage no tobacco use; mammogram performed within the past year; history of recent colonoscopy Sallie Hood, [facility]- [address], [place], [address], [facility] 11/08/2022 19:05:15 OBGyn Episode Ob Episode Information Episode Created Date Number of Fetuses Patient Bloodtype Patient rh Status Prepregnancy Weight lbs Domestic Partner Domestic Partner Phone Father Name Supervisor [employer] Status 04/15/20 21 1 CLOSED Fetus Data First Name Last Name Admitted to NICU Weight (g) Sex Living Outcome Pediatric Complications Fetus ID Race Codes Race Delivery Type , Induced [id number] Sal Calculation Initial Sal Date Initial Exam Date Initial Exam Provider Initial Ultrasound Date Last Menstrual Period Date Ultra Sound Weeks Gestation 0 Eighteen To Twenty Week Sal Update Ultra Sound Date Fundal Height At Umbil Quickening Date Ultra Sound Latest Weeks Gestation Final Sal Confirmed By Final Sal Confirmed Date Final Sal Date Ultra Sound Latest Days Gestation 0 0 Menstrual History Last Menstrual Date Menses Monthly On Bcp Conception Prior Menses Frequency Hcg Plus Date Menarche Onset Age Delivery Information Delivery Date Delivery Type Labor Anesthesia Weeks Gestation Incision Type Labor Labor Length Hrs Delivered By Post Complications Tubal Sterilization Discharge Date Comments 6 Discharge Information Feeding Method Contraceptive Method Maternal HG B and HCT Levels Ob Episode Information Episode Created Date Number of Fetuses Patient Bloodtype Patient rh Status Prepregnancy Weight lbs Domestic Partner Domestic Partner Phone Father Name Supervisor [employer] Status 04/15/20 21 1 CLOSED Fetus Data First Name Last Name Admitted to NICU Weight (g) Sex Living Outcome Pediatric Complications Fetus ID Race Codes Race Delivery Type 2721.55 2 F Full Term [id number] Repeat Sal Calculation Initial Sal Date Initial Exam Date Initial Exam Provider Initial Ultrasound Date Last Menstrual Period Date Ultra Sound Weeks Gestation 0 Eighteen To Twenty Week Sal Update Ultra Sound Date Fundal Height At Umbil Quickening Date Ultra Sound Latest Weeks Gestation Final Sal Confirmed By Final Sal Confirmed Date Final Sal Date Ultra Sound Latest Days Gestation 0 0 Menstrual History Last Menstrual Date Menses Monthly On Bcp Conception Prior Menses Frequency Hcg Plus Date Menarche Onset Age Delivery Information Delivery Date Delivery Type Labor Anesthesia Weeks Gestation Incision Type Labor Labor Length Hrs Delivered By Post Complications Tubal Sterilization Discharge Date Comments 4 Discharge Information Feeding Method Contraceptive Method Maternal HG B and HCT Levels Ob Episode Information Episode Created Date Number of Fetuses Patient Bloodtype Patient rh Status Prepregnancy Weight lbs Domestic Partner Domestic Partner Phone Father Name Supervisor [employer] Status 04/15/20 21 1 CLOSED Fetus Data First Name Last Name Admitted to NICU Weight (g) Sex Living Outcome Pediatric Complications Fetus ID Race Codes Race Delivery Type 2721.55 2 F Full Term [id number] Primary Sal Calculation Initial Sal Date Initial Exam Date Initial Exam Provider Initial Ultrasound Date Last Menstrual Period Date Ultra Sound Weeks Gestation 0 Eighteen To Twenty Week Sal Update Ultra Sound Date Fundal Height At Umbil Quickening Date Ultra Sound Latest Weeks Gestation Final Sal Confirmed By Final Sal Confirmed Date Final Sal Date Ultra Sound Latest Days Gestation 0 0 Menstrual History Last Menstrual Date Menses Monthly On Bcp Conception Prior Menses Frequency Hcg Plus Date Menarche Onset Age Delivery Information Delivery Date Delivery Type Labor Anesthesia Weeks Gestation Incision Type Labor Labor Length Hrs Delivered By Post Complications Tubal Sterilization Discharge Date Comments 1 Discharge Information Feeding Method Contraceptive Method Maternal HG B and HCT Levels
--- OUTSIDE RECORDS SUMMARY | 2024-07-28 12:31 | XMS_ITS | Clinical Summary ---
Author Organization [facility] Address [address] [place] [address] Care Team Providers Care Journal Clerk Name Role Phone Unknown, Provider Primary Care Provider Unavaila ble Source Comments [facility],non-owned Affiliates and Associated Physician Practices is amultiple site organization consisting of ambulatory clinics and hospital sitesin [place], [place], [place] and [place]. This disclosure is being madepursuant to the Care Everywhere program and may not contain all information available regarding this patient. Last updated 18.[facility] [employer] Social History Tobacco Use Types Packs/Day Years Used Date Smoking Tobacco: Never Assessed Sex and Gender Information Value Date Recorded Sex Assigned at Not on file Gender Identity Not on file Sexual Orientation Not on file Plan of Treatment Health Maintenance Due Date Last Done Comments COLOGUARD (AGES 45-75) - COL ON CA SCREENING 1969 COLON MONITORING 1969 COLONOSCOPY - COLON CA SCREENING 1969 CT COLONOGRAPHY - COLON CA SCREENING 1969 Colorectal Cancer Screening 1969 FIT - COLON CA SCREENING 1969 FLEX SIG - COLON CA SCREENING 1969 LIPID TESTING 1969 MAMMOGRAM 1969 PAP SMEAR 1969 HIV SCREENING 1984 HEPATITIS C SCREENING 12/19/1987 DTAP/TDAP/TD VACCINES (1 - Tdap) 1988 HEPATITIS B VACCINE (1 of 3 - 19+ 3-dose series) 1988 PNEUMOCOCCAL VACCINE 50+ (1 of 1 - PCV) 12/24/2019 ZOSTER VACCINE (1 of 2) 12/24/2019 COVID-19 VACCINE ( - 2023-2 5 season) 2024 INFLUENZA VACCINE (#1) 2024 DEPRESSION SCREENING 06/17/2024 HIB VACCINE Aged Out No longer eligi ble based on patient's age to complete this topic HPV VACCINE Aged Out No longer eligi ble based on patient's age to complete this topic MENINGOCOCCAL (Group B) VACCINE Aged Out No longer eligible based on patient's age to complete this topic MENINGOCOCCAL VACCINE Aged Out No rai komal eligible based on patient's age to complete this topic PNEUMOCOCCAL VACCINE Aged Out No long er eligible based on patient's age to complete this topic Care Teams Journal Clerk Relationship Specialty Start Date End Date Unknown, Provider PCP - General 10/31/17
--- OUTSIDE RECORDS SUMMARY | 2024-07-28 12:31 | XMS_ITS | Patient Health Summary ---
Author Organization [facility] Address [address] [place] [address] Care Team Providers Care Cafe Assistant Name Role Phone Unknown, Provider Primary Care Provider Unavaila ble Note from [facility],non-owned Affiliates and Associated Physician Practices is amultiple site organization consisting of ambulatory clinics and hospital sitesin [place], [place] and [place]. This disclosure is being madepursuant to the Care Everywhere program and may not contain all information available regarding this patient. Last updated 18.[facility] Social History Tobacco Use Types Packs/Day Years Used Date Smoking Tobacco: Never Assessed Sex and Gender Information Value Date Recorded Sex Assigned at Not on file Gender Identity Not on file Sexual Orientation Not on file Procedures * DERMATOPATHOLOGY(Performed 03/04/2018) * DERMATOPATHOLOGY(Performed 10/30/2017) * DERMATOPATHOLOGY(Performed 02/27/2017) * DERMATOPATHOLOGY(Performed 10/03/2016) * DERMATOPATHOLOGY(Performed 04/15/2012) Results * DERMATOPATHOLOGY (03/04/2018 12:00 AM CDT) Only the most recent of5 resultswithin the time period is included. Case Report Dermatopathology Report Case: [id number] Authorizing Provider: Kade Chandler MD Collected: 03/04/2018 [...] specimen consists of a shave biopsy measuring [id number]. Jar 0. 3:42 PM CDT DERMATOPATHOLOGY LABORATORY [...] characteristic determined by the Dermatopathology Laboratory at [facility]. These tests need not be, and therefore are not, approved by the [place] Food and Drug Administration. The tests are used for clinical purposes. Billing Codes Specimen Charges Stain Charges 62804 1 93915 1 3:42 PM CDT DERMATOPATHOLOGY LABORATORY Embedded Images 3:42 PM CDT DERMATOPATHOLOGY LABORATORY Pathology/Cytolog y TISSUE SPECIMEN FROM SKIN / Unknown 03/04/2018 03/05/2018 11:47 AM CDT Kade Chandler MD LAB - PATHOLOGY/CYTO LOGY ORDERABLES DERMATOPATHOLOGY LABORATORY [facility] - Department of Dermatology [address], [address]th [place] [address], [facility] [phone] Care Teams Cafe Assistant Relationship Specialty Start Date End Date Unknown, Provider PCP - General 10/31/17
--- OUTSIDE RECORDS SUMMARY | 2024-07-28 12:31 | XMS_ITS | Encounter Summary ---
Author Organization [facility] Address [address] [place] [address] Care Team Providers Care Train Control Electronic Technician Name Role Phone Unknown, Provider Primary Care Provider Unavaila ble Encounter Details Date Type Department Care Team (Late st Contact Info) Description 10/31/2017 Lab Requisition [facility] Care DermPath Lab [address] [place] [id number] Kade Chandler MD [address] [place] [address] Social History Tobacco Use Types [...] Priority Date/Time Associated Diagnosis Comments DERMATOPATHOLOGY Routine 10/30/2017 12:0 0 AM CDT documented in this encounter Results * DERMATOPATHOLOGY (10/30/2017 12:00 AM CDT) Case Report Dermatopathology Report Case: [id number] Authorizing Provider: Kade Chandler MD Collected: 10/30/2017 12:00 AM Pathologist: Rigoberto Cardenas MD Received: 10/31/2017 12:30 PM Specimen: Skin, left distal extensor ulnar forearm 8 5:07 PM CDT DERMATOPATHOLOGY LABORATORY Final Diagnosis Specimen A. SKIN, left distal extensor ulnar forearm: VERRUCA VULGARIS (B07.8) PRESENT AT MARGIN 8 5:07 PM CDT DERMATOPATHOLOGY LABORATORY Clinical History R/O ISK. Check margins. 8 5:07 PM CDT DERMATOPATHOLOGY LABORATORY Gross Description Specimen A: Received is one formalin filled container labeled with the patient's name and designated left distal extensor ulnar forearm. The specimen consists of a shave biopsy measuring [id number], the margin is inked green. Jar 0. 8 5:07 PM CDT DERMATOPATHOLOGY LABORATORY Microscopic Description Specimen A. SKIN, left distal extensor ulnar forearm: There is digitated epidermal hyperplasia, hypergranulosis, vacuolated granular layer cells, and compact hyperorthokeratosis . This lesion is present at the margin of the specimen. 8 5:07 PM CDT DERMATOPATHOLOGY LABORATORY Disclaimer An external and internal positive and negative controls are appropriate for the histochemical, immunohistochemical and immunofluorescence stain(s) in this case (if any), except where stated explicitly. The performance characteristics of the stain(s) cited in this report were developed and its performance characteristic determined by the Dermatopathology Laboratory at [facility]. These tests need not be, and therefore are not, approved by the [place] Food and Drug Administration. The tests are used for clinical purposes. Billing Codes Specimen Charges Stain Charges 68356 1 8 5:07 PM CDT DERMATOPATHOLOGY LABORATORY Embedded Images 8 5:07 PM CDT DERMATOPATHOLOGY LABORATORY Pathology/Cytolog y TISSUE SPECIMEN FROM SKIN / Unknown 10/30/2017 10/31/2017 12:30 PM CDT Kade Chandler MD LAB - PATHOLOGY/CYTO LOGY ORDERABLES DERMATOPATHOLOGY LABORATORY [facility] - Department of Dermatology [address] [place] [address], [address] [place] [address], [facility] [phone] documented in this encounter Visit Diagnoses Not on filedocumented in this encounter Care Teams Train Control Electronic Technician Relationship Specialty Start Date End Date Unknown, Provider PCP - General 10/31/17 documented as of this encounter
[2024-07-28 13:26] LABS: Influenza A QL RT-PCR Negative (Negative); Influenza B QL RT-PCR Negative (Negative); RSV RNA, RT-PCR Negative (Negative); SARS-CoV-2 RNA PCR Negative (Negative)
== END 2024-07-28 11:11 | disposition home or self-care (01) ==
LOC: ANHLAB 11:11
PROVIDERS: PCP Physician Assistant; Visit Provider Student in an Organized Health Care Education/Training Program
DX: R05.9 Cough, unspecified (principal); Z20.822 Contact with and (suspected) exposure to COVID-19
CPT/HCPCS: 87637

== ENCOUNTER 2025-01-28 14:59 | Outpatient (CLI) | payer OTHER, SELFPAY ==
--- NOTE | ~2025-01-28 | MR_ITS ---
MRI of the brain Clinical History: Multiple sclerosis Technique: Axial and sagittal T1-weighted images were acquired. These were followed by axial T2-weigh adán, diffusion weighted, gradient, and FLAIR images. Following intravenous administration of 15 cc Mu ltiHance gadolinium, T1-weighted fat-sat imaging was performed in the axial, coronal, and sagittal pl anes. COMPARISON: 02/16/2017 Findings: There is no acute infarct, intracranial hemorrhage, or mass lesion. There are a few scatter ed focal white matter lesions in the periventricular white matter, similar in overall distribution to prior exam. Ventricles and subarachnoid spaces are unremarkable. Orbits are unremarkable. Paranasal sinuses and m astoid air cells are clear. Major intracranial flow voids are intact. Sagittal midline structures are intact. No abnormal postcontrast enhancement identified. IMPRESSION: Mild white matter disease is essentially stable from prior exam. Diagnostic considerations include de myelinating disease versus mild chronic microvascular ischemic change. Reviewed, dictated and finalized at location . IMPRESSION: Mild white matter disease is essentially stable from prior exam. Diagnostic con siderations include demyelinating disease versus mild chronic microvascular isc hemic change.
--- OUTSIDE RECORDS SUMMARY | 2025-01-28 15:04 | XMS_ITS | Encounter Summary ---
Author Organization [facility] Address [address] [place] [address] Care Team Providers Care Vibrating Screed Operator Name Role Phone Unknown, Provider Primary Care Provider Unavaila ble Encounter Details Date Type Department Care Team (Late st Contact Info) Description 03/05/2018 Lab Requisition [facility] DermPath Lab [address] [place] [phone] Kade Chandler MD [address] [place] [address] Social History Tobacco Use Types Packs/Day Years Used Date Smoking Tobacco: Never Assessed Comments Unknown Sex and Gender Information Value Date Recorded Sex Assigned at Not on file 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 Gender Identity Not on file Sexual Orientation Not on file documented as of this encounter Plan of Treatment Not on file documented as of this encounter Procedures Procedure Name Priority Date/Time Associated Diagnosis Comments DERMATOPATHOLOGY Routine 03/04/2018 12:0 0 AM CDT documented in this encounter Results * DERMATOPATHOLOGY (03/04/2018 12:00 AM CDT) Case Report Dermatopathology Report Case: [id number] Authorizing Provider: Kade Chandler MD Collected: 03/04/2018 12:00 AM Pathologist: Tari Jones MD Received: 03/05/2018 11:47 AM Specimen: Skin, right lateral superior calf 8 3:42 PM CDT DERMATOPATHOLOGY LABORATORY Final Diagnosis Specimen A. SKIN, right lateral superior calf: LENTIGINOUS MELANOCYTIC NEVUS, JUNCTIONAL TYPE, IRRITATED (JUNCTIONAL MELANOCYTIC NEVUS WITH ARCHITECTURAL DISORDER) (D22.71) 8 3:42 PM CDT DERMATOPATHOLOGY LABORATORY at 1542 CDT Clinical History R/O dys nevus. 3:42 PM CDT DERMATOPATHOLOGY LABORATORY Gross Description Specimen A: Received is one formalin filled container labeled with the patient's name and designated right lateral superior calf. The specimen consists of a shave biopsy measuring [id number]. Jar 0. 3:42 PM CDT DERMATOPATHOLOGY LABORATORY [...] characteristic determined by the Dermatopathology Laboratory at [facility]. These tests need not be, and therefore are not, approved by the [place] Food and Drug Administration. The tests are used for clinical purposes. Billing Codes Specimen Charges Stain Charges 88583 1 11726 1 8 3:42 PM CDT DERMATOPATHOLOGY LABORATORY Embedded Images 3:42 PM CDT DERMATOPATHOLOGY LABORATORY Pathology/Cytolog y TISSUE SPECIMEN FROM SKIN / Unknown 03/04/2018 03/05/2018 11:47 AM CDT us Kade Chandler MD LAB - PATHOLOGY/CYTOLOGY ORD ERABLES Final Result DERMATOPATHOLOGY LABORATORY [facility] - Department of Dermatology [address], [address] [place] [address], [facility] [phone] documented in this encounter Visit Diagnoses Not on filedocumented in this encounter Care Teams Vibrating Screed Operator Relationship Specialty Start Date End Date Unknown, Provider PCP - General 10/31/17 documented as of this encounter
--- OUTSIDE RECORDS SUMMARY | 2025-01-28 15:04 | XMS_ITS | Clinical Summary ---
Author Organization [facility] Address [address] [place] [address] Care Team Providers Care Renderer Name Role Phone Unknown, Provider Primary Care Provider Unavaila ble Source Comments [facility],non-owned Affiliates and Associated Physician Practices is amultiple site organization consisting of ambulatory clinics and hospital sitesin [place], [place], [place] and [place]. This disclosure is being madepursuant to the Care Everywhere program and may not contain all information available regarding this patient. 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 Gender Identity Not on file Sexual Orientation [...] SCREENING 1969 LIPID TESTING 1969 MAMMOGRAM 1969 HIV SCREENING 1984 HEPATITIS C SCREENING 12/19/1987 DTAP/TDAP/TD VACCINES (1 - Tdap) 1988 HEPATITIS B VACCINE (1 of 3 - 19+ 3-dose series) 1988 PAP SMEAR 1990 PNEUMOCOCCAL VACCINE 50+ (1 of 1 - PCV) 12/24/2019 ZOSTER VACCINE (1 of 2) 12/24/2019 COVID-19 VACCINE (1 - 2023-2 5 season) 2024 DEPRESSION SCREENING 06/17/2024 INFLUENZA VACCINE (#1) 2025 HIB VACCINE Aged Out No longer eligi ble based on patient's age to complete this topic HPV VACCINE Aged Out No longer eligi ble based on patient's age to complete this topic MENINGOCOCCAL (Group B) VACC INE SHARED DECISION-MAKING Aged Out No longer eligibl e based on patient's age to complete this topic MENINGOCOCCAL GROUPS A/C/Y/W VACCINE Aged Out No longer eligible b ased on patient's age to complete this topic Insurance COUNT INCLUDES THE [facility] SELF PAY NO INSURANCE Member Subscriber Plan / Payer (Ef fective for All Dates) Name:Deepak Barriga Member ID:Not on file Relation to Subscriber:Not on file Name:DEEPAK BARRIGA Subscriber ID:Not on file (Home) Address: [address] [place] [address] Payer ID:Not on file Group ID:Not on file Type:Self Pay Address: [place], [place] [employer] Member Subscriber Plan / Payer (Ef fective 2021-Present) Name:Deepak Barriga Relation to Subscriber:Self Name:Deepak Barriga Payer ID:[id number] (NAIC) Group ID:Not on file Type:PPO Address: [address] [place] [phone] Care Teams Renderer Relationship Specialty Start Date End Date Unknown, Provider PCP - General 10/31/17
--- OUTSIDE RECORDS SUMMARY | 2025-01-28 15:04 | XMS_ITS | Encounter Summary ---
Author Organization [facility] Address [address] [place] [place] [address] Care Team Providers Care Junior Web Designer Name Role Phone Unknown, Provider Primary Care Provider Unavaila ble Encounter Details Date Type Department Care Team (Late st Contact Info) Description 10/31/2017 Lab Requisition [facility] Care DermPath Lab [address] [place] [phone] Kade Chandler MD [address] [place] [address] Social History Tobacco Use Types Packs/Day Years Used Date Smoking Tobacco: Never Assessed Comments Unknown Sex and Gender Information Value Date Recorded Sex Assigned at Not on file Legal Sex Female 5:28 PM [facility] Gender Identity Not on file Sexual Orientation Not on file documented as of this encounter Plan of Treatment Not on file documented as of this encounter Procedures Procedure Name Priority Date/Time Associated Diagnosis Comments DERMATOPATHOLOGY Routine 10/30/2017 12:0 0 AM CDT documented in this encounter Results * DERMATOPATHOLOGY (10/30/2017 12:00 AM CDT) Case Report Dermatopathology Report Case: [id number] Authorizing Provider: Kade Chandler MD Collected: 10/30/2017 12:00 AM Pathologist: Rigoberto Cardenas MD Received: 10/31/2017 12:30 PM Specimen: Skin, left distal extensor ulnar forearm 8 5:07 PM CDT DERMATOPATHOLOGY LABORATORY Final Diagnosis Specimen A. SKIN, left distal extensor ulnar forearm: VERRUCA VULGARIS (B07.8) PRESENT AT MARGIN 8 5:07 PM CDT DERMATOPATHOLOGY LABORATORY at 1707 CDT Clinical History R/O ISK. Check margins. 8 5:07 PM CDT DERMATOPATHOLOGY LABORATORY Gross Description Specimen A: Received is one formalin filled container labeled with the patient's name and designated left distal extensor ulnar forearm. The specimen consists of a shave biopsy measuring [id number], the margin is inked green. Jar 0. [...] characteristic determined by the Dermatopathology Laboratory at [facility]. These tests need not be, and therefore are not, approved by the [place] Food and Drug Administration. The tests are used for clinical purposes. Billing Codes Specimen Charges Stain Charges 02551 1 8 5:07 PM CDT DERMATOPATHOLOGY LABORATORY Embedded Images 8 5:07 PM CDT DERMATOPATHOLOGY LABORATORY Pathology/Cytolog y TISSUE SPECIMEN FROM SKIN / Unknown 10/30/2017 10/31/2017 12:30 PM CDT Kade Chandler MD LAB - PATHOLOGY/CYTOLOGY ORD ERABLES Final Result DERMATOPATHOLOGY LABORATORY [facility] - Department of Dermatology [address] [place] [address], [address] [place] [address], [facility] [phone] documented in this encounter Visit Diagnoses Not on filedocumented in this encounter Care Teams Junior Web Designer Relationship Specialty Start Date End Date Unknown, Provider PCP - General 10/31/17 documented as of this encounter
== END 2025-01-28 15:00 | disposition home or self-care (01) ==
PROVIDERS: PCP Family Medicine; Visit Provider Psychiatry & Neurology Neurology
DX: G35 Multiple sclerosis (principal); R90.82 White matter disease, unspecified
CPT/HCPCS: 70553; A9577

== ENCOUNTER 2025-03-18 08:15 | Outpatient (CLI) | payer OTHER, SELFPAY ==
--- NOTE | ~2025-03-18 | XR_ITS ---
EXAMINATION: XR hip LT 2V w AP pelvis, 03/18/2025 8:26 CDT HISTORY: M54.50 - Low back pain, unspecified COMPARISON: No comparisons available. Findings: No acute fracture or malalignment. No significant degenerative changes. Soft tissues unremarkable. Impression: No acute fracture or malalignment. Reviewed, dictated and finalized at location P. Impression: No acute fracture or malalignment.
--- NOTE | ~2025-03-18 | XR_ITS ---
XR lumbar spine 2-3V Indication: M54.50 - Low back pain, unspecified Comparison: None Findings: The vertebral heights are intact. No fracture or subluxation. The disc heights are intact. Soft tissues unremarkable Impression: No acute abnormality. Reviewed, dictated and finalized at location P. Impression: No acute abnormality.
== END 2025-03-18 08:16 | disposition home or self-care (01) ==
PROVIDERS: PCP Family Medicine; Visit Provider Student in an Organized Health Care Education/Training Program
DX: M54.50 Low back pain, unspecified (principal)
CPT/HCPCS: 72100; 73502